=== PATIENT | male | born 1960 | race Caucasian/White ===

== ENCOUNTER 2019-11-06 10:14 | Emergency (ER) | payer OTHER ==
[~2019-11-06] VITALS: Ht 175.3 cm; Wt 103.0 kg
[2019-11-06] MEDS ORDERED: LIDOCAINE-MPF 1%, 5ML ONE ×2 (10:29→10:31)
[2019-11-06] MEDS ORDERED: BUPIVACAINE 0.25% ONE (10:29)
[2019-11-06] MEDS ORDERED: DIPH,PERTUSS(ACELL),TET VAC/PF 0.5 ML IM-VACC ONE ×2 (10:29→10:30)
[2019-11-06] MEDS ORDERED: CEPHALEXIN 500 MG CAPSULE PO ONE (10:30)
[2019-11-06] MEDS ORDERED: BUPIVACAINE/PF 0.25% INFIL ONE (10:30)
[2019-11-06] MEDS ORDERED: LIDOCAINE-MPF 1%, 5ML INFIL ONE (10:30)
--- NOTE | 2019-11-06 10:55 | NUR ---
pt presents to ED for suture of left knee lac, approx 6 in in length. lac sustained this am after tripping on rock and striking left knee on rock. pt denies neck injury, head injury, loc. unknown last tdap. bleeding controlled. pt given tdap vaccine, supplies at bedside for irrigation and sutures after nerve block completed by EDPA. BRAEDEN Stark at bedside to administer nerve block. pt a&o, resps even and unlabored, nadn. pt updated with POC, agreeable.
--- NOTE | 2019-11-06 11:45 | NUR ---
EDPA at bedside suturing pt at this time, pt tolerating well.
[2019-11-06] MEDS ORDERED: CEPHALEXIN 500 MG CAPSULE ONE (12:17)
[2019-11-06 12:21] VITALS: BP 133/72
[2019-11-06] MEDS ORDERED: NEOSPORIN OINT. PKT 1 PACKET ONE (12:23)
--- NOTE | 2019-11-06 12:49 | NUR ---
LATE ENTRY FOR 1249: BACITRACIN DRESSING PLACED TO SUTURE SITE, KNEE IMMOBILIZER PLACED BY EDT. PT GIVEN FITTED CRUTCHES. PT GIVEN DC INSTRUCTIONS AND SCRIPT, EDUCATED REGARDING RX FOR CLINDAMYCIN. EDUCATED REGARDING WOUNDCARE AND WORK RESTRICTIONS. PT AMBULATORY TO DC DESK WITH CRUTCH GAIT. AIDEN AT MO.
== END 2019-11-06 12:49 | disposition home or self-care (01) ==
LOC: ED 11:22
DX: S81.012A Laceration without foreign body, left knee, initial encounter (principal); W01.0XXA Fall on same level from slipping, tripping and stumbling without subsequent striking against object, initial encounter; Y93.89 Activity, other specified; Y92.488 Other paved roadways as the place of occurrence of the external cause; Y99.8 Other external cause status
CPT/HCPCS: 12002; 73564; 90471; 90715; 99283; J3490; 29505

== ENCOUNTER 2019-11-10 08:45 | Emergency (ER) | payer OTHER ==
[~2019-11-10] VITALS: Ht 175.3 cm; Wt 108.0 kg
[2019-11-10 08:48] VITALS: BP 126/87
[2019-11-10] MEDS ORDERED: NEOSPORIN OINT. PKT 1 PACKET ONE (08:57)
--- NOTE | 2019-11-10 08:57 | NUR ---
FIRST CONTACT WITH PT. PT HAS CO NEEDING CLEARANCE TO WORK FROM KNEE INJURY AND STITCHES. PT'S AOX4. RESPS EVEN AND UNLABORED. PA AT BEDSIDE EVALUATING AT THIS TIME.
--- NOTE | 2019-11-10 09:20 | NUR ---
Patient given discharge instructions and they have confirmed that they understand the instructions. Patient ambulatory with steady gait.
== END 2019-11-10 09:22 | disposition home or self-care (01) ==
LOC: ED 08:50
DX: S81.012D Laceration without foreign body, left knee, subsequent encounter (principal); Z48.00 Encounter for change or removal of nonsurgical wound dressing; X58.XXXD Exposure to other specified factors, subsequent encounter
CPT/HCPCS: 99282

== ENCOUNTER 2019-11-17 16:27 | Emergency (ER) | payer OTHER ==
[~2019-11-17] VITALS: Ht 175.3 cm; Wt 102.5 kg
[2019-11-17 16:38] VITALS: BP 141/82
== END 2019-11-17 17:58 | disposition home or self-care (01) ==
LOC: ED 16:45
DX: S81.012D Laceration without foreign body, left knee, subsequent encounter (principal); X58.XXXD Exposure to other specified factors, subsequent encounter
CPT/HCPCS: 99281